=== PATIENT | male | born 1995 | race Hispanic/Latino ===

== ENCOUNTER → 2020-09-05 | Emergency (ER) ==
[~2020-09-05] MED LIST: Bupivacaine 0.25% HCL 30 ML VIAL ONE; Dexamethasone 20 MG/5 ML VIAL ONE; EPINEPHrine 1 MG/ML AMP ONE; Fentanyl 100 MCG/2 ML VIAL ONE; Glycopyrrolate 0.2 MG/ML 5 ML SYRINGE ONE; Ketorolac Tromethamine 30 MG/ML VIAL ONE; Ondansetron PF 4 MG/2 ML Vial ONE; PROPOFOL 200 MG/20 ML VIAL ONE; Piperacillin/Tazobactam 3.375 GM VIAL ONE; Sodium Chloride 0.9% 10 ML ONE; Sodium Chloride 0.9% 100 ML ONE; Succinylcholine 200 MG/10 ml SYRINGE FS ONE
== END ==
LOC: ERS 05:25 → SDC 08:33
PROC: 0DTJ4ZZ Resection of Appendix, Percutaneous Endoscopic Approach (ICD-10-PCS; principal; 2020-09-05)
DX: K35.80 Unspecified acute appendicitis (principal); K38.1 Appendicular concretions; Z20.822 Contact with and (suspected) exposure to COVID-19
CPT/HCPCS: 88304; J0171; J1100; J1885; J2405; J2543; J2704; J3010; J3490; S0020

== ENCOUNTER 2021-07-23 20:42 | Emergency (ER) | payer OTHER, BC ==
[2021-07-23] MEDS ORDERED: Acetaminophen 500 MG TAB ONE ×2 (21:40→21:43)
== END 2021-07-23 22:38 | disposition home or self-care (01) ==
LOC: ERS 20:42
DX: S80.02XA Contusion of left knee, initial encounter (principal); I10 Essential (primary) hypertension; W17.89XA Other fall from one level to another, initial encounter; Y92.89 Other specified places as the place of occurrence of the external cause; Y99.0 Civilian activity done for income or pay